=== PATIENT | female | born 1985 | race Hispanic/Latino ===

== ENCOUNTER 2017-07-31 13:17 | Outpatient (CLI) | payer OTHER ==
[2017-07-31] MEDS ORDERED: NACL ONE (14:04)
--- NOTE | 2017-07-31 15:25 | Cat Scan Report ---
CT angiography of the chest including 3-D reconstructed images. History: Chest pain. There is no evidence of pulmonary embolus. There is mild technical compromised due to body habitus. The lungs are clear. No pleural fluid is seen. Impression: No evidence of pulmonary emboli.
== END 2017-07-31 13:18 | disposition home or self-care (01) ==
LOC: CT 13:17
PROVIDERS: ATTEND Internal Medicine
DX: R07.89 Other chest pain (principal); R06.02 Shortness of breath
CPT/HCPCS: 71275; Q9967

== ENCOUNTER 2021-01-12 12:47 | Outpatient (CLI) | payer MEDICAID ==
[2021-01-12 13:19] LABS: Basophils # (Auto) 0.1 K/mm3 (0.0-0.1); Basophils % (Auto) 0.5 % (0.0-1.8); Eosinophils # (Auto) 0.2 K/mm3 (0.0-0.4); Eosinophils % (Auto) 1.4 % (0.0-4.3); Hematocrit 37.4 % (30.3-42.9); Hemoglobin 12.6 gm/dl (10.1-14.3); Lymphocytes # (Auto) 3.3 K/mm3 (1.2-5.4); Lymphocytes % (Auto) 21.4 % (13.4-35.0); Mean Corpuscular HGB Conc 34 % (30-34); Mean Corpuscular Volume 80 fl (79-97); Monocytes % (Auto) 6.7 % (0.0-7.3); Platelet Count 570 K/mm3 (140-440); Red Blood Count 4.68 M/mm3 (3.65-5.03); Red Cell Distribution Width 14.2 % (13.2-15.2)
[2021-01-12 13:40] LABS: % Iron Saturation 9.86 %; Alanine Aminotransferase 11 units/L (7-56); Albumin 3.8 g/dL (3.9-5); BUN/Creatinine Ratio 14; Blood Urea Nitrogen 13 mg/dL (7-17); Calcium 9.1 mg/dL (8.4-10.2); Chol/HDL Ratio 4.44 %; HDL Cholesterol 36 mg/dL (40-59); Hemolysis Index 1; Iron 29 ug/dL (37-170); LDL Cholesterol,Direct 107 mg/dL (50-130); Total Iron Binding Capacity 294 mcg/dL (250-450)
[2021-01-16 10:48] LABS: Vitamin D, 25-OH, D2 <4 ng/mL
== END 2021-01-12 12:48 | disposition home or self-care (01) ==
LOC: LAB 12:47
PROVIDERS: ATTEND Surgery
DX: E11.9 Type 2 diabetes mellitus without complications (principal); E55.9 Vitamin D deficiency, unspecified; E66.01 Morbid (severe) obesity due to excess calories; K30 Functional dyspepsia; K90.9 Intestinal malabsorption, unspecified
CPT/HCPCS: 36415; 80053; 80061; 82306; 82607; 82728; 83036; 83550; 84443; 85025; 85730

== ENCOUNTER 2021-01-28 10:00 | Outpatient (CLI) | payer MEDICAID ==
--- NOTE | 2021-01-28 11:29 | Fluoroscopy Report ---
UPPER GI HISTORY: GASTRO-ESOPHAGEAL REFLUX DISEASE W/O ESOPHAGITIS. TECHNIQUE: Single and double contrast barium technique utilized to evaluate the esophagus, stomach, and duodenal C-loop. FINDINGS: To begin the exam, swallowing was evaluated in the lateral position under direct fluorosco py. Swallowing was normal. No mucosal irregularity, mass, mass effect, or critical stenosis. There were no abnormal tertiary c ontractions as seen with dysmotility. No gastroesophageal reflux. IMPRESSION: Unremarkable exam. Fluoroscopic time: 2.0 minutes Number of fluoroscopic images: 21 Signer Name: Mark Marie Jr, MD Signed: 01/28/2021 11:25 AM Workstation Name: [id number]
== END 2021-01-28 10:01 | disposition home or self-care (01) ==
LOC: FLUORO 10:00
PROVIDERS: ATTEND Surgery
DX: K21.9 Gastro-esophageal reflux disease without esophagitis (principal)
CPT/HCPCS: 74246

== ENCOUNTER 2021-02-15 07:01 | Day surgery (SDC) | payer MEDICAID ==
[~2021-02-15 07:01] MED LIST: SODIUM CHLORIDE 0.9% 1000 ML 1,000 ML IV SCH
--- NOTE | 2021-02-15 08:13 | Anesthesia Consultation ---
Anesthesia Consult and Med Hx Date of service: 02/15/21 - Airway Anesthetic Teeth Evaluation: Dentures (Upper full plate dentures) ROM Head & Neck: Adequate Mental/Hyoid Distance: Adequate Mallampati Class: Class III Intubation Access Assessment: Possibly Difficult - Pulmonary Exam CTA: Yes - Pre-Operative Health Status ASA Pre-Surgery Classification: ASA3 Proposed Anesthetic Plan: MAC - Pulmonary Hx Smoking: No Hx Asthma: No Hx Respiratory Symptoms: No Hx Sleep Apnea: Yes - Cardiovascular System Hx Hypertension: Yes Hx Heart Attack/AMI: No Hx Angina: No Hx Pacemaker: No - Central Nervous System Hx Neuromuscular Disorder: No Hx Seizures: No CVA: No Hx Psychiatric Problems: Yes (Anxiety/Depression) - Gastrointestinal Hx Gastroesophageal Reflux Disease: Yes - Endocrine Hx Renal Disease: No Hx Liver Disease: No Hx Insulin Dependent Diabetes: No Hx Non-Insulin Dependent Diabetes: No Hx Thyroid Disease: No - Other Systems Hx Alcohol Use: No Hx Substance Use: No Hx Obesity: Yes (BMI 39.7kg) - Additional Comments Anesthesia Medical History Comments: Hx. PONV
--- NOTE | 2021-02-15 08:17 | Anesthesia Day of Surgery ---
Anesthesia Day of Surgery - Day of Surgery Patient Examined: Yes Patient H&P Reviewed: Yes Patient is NPO: Yes Beta Blockers: No Cardiac Clearance: No Pulmonary Clearance: No Jacinto's Test: N/A
--- NOTE | 2021-02-15 08:40 | Discharge Summary ---
Providers - Providers Date of Admission: 02/15/2021 Date of discharge: 02/15/21 Attending physician: CLAIRE RAMSAY MD Primary care physician: MYRANDA WOODARD Hospitalization Reason for admission: EGD Condition: Good Procedures: EGD with biopsy Hospital course: Pt presented for a pre-op EGD as part of planning for up coming bariatric surgery. Procedure was uneventful and pt recovered well and was discharged to home. Disposition: DC-01 TO HOME OR SELFCARE Final Discharge Diagnosis (Prints w/discharge instructions): GERD, morbid obesity Core Measure Documentation - Palliative Care Palliative Care/ Comfort Measures: Not Applicable - Core Measures Any of the following diagnoses?: none Exam - Physical Exam Narrative exam: unchanged from pre-op Plan Activity: advance as tolerated Diet: low carbohydrate Follow up with: MYRANDA WOODARD MD [Primary Care Provider] - 7 Days
--- NOTE | 2021-02-15 08:41 | Operative Report ---
Operative Report Operative Report: DATE: 02/15/2021 SURGERY: Upper endoscopy. SURGEON: Vinh Jade M.D. PROCEDURE: EGD with biopsy PRE OP DX: morbid obesity, GERD, peptic ulcer disease POST OP DX: morbid obesity, GERD, PUD TYPE OF ANESTHESIA: MAC. ESTIMATED BLOOD LOSS: None. COMPLICATIONS: None. SPECIMENS REMOVED: antral biopsy FINDINGS: 1. Small hiatal hernia. 2. Otherwise, normal esophagus, stomach and first portion of duodenum. INDICATIONS:INDICATION FOR PROCEDURE: Patient is a 35-year-old female with a long history of morbid obesity. She is planned to have a weight loss procedure and is here for preoperative planning EGD. PROCEDURE DETAILS: After consent was reviewed, patient was taken back to the operating room where patient was placed in the left lateral decubitus position and a bite block was placed in the mouth. After a time-out was called, MAC anesthesia was initiated. I then passed the endoscope into her oropharynx, into her esophagus, visualized the entire esophagus, which was all within normal limits. Z-line was noted to about 36 cm from incisors. I then visualized the stomach and the first portion of the duodenum and there were no abnormalities I could clearly visualize except for antral gastritis. A cold forceps biopsy of the antrum was taken and will be sent to pathology to evaluate for H.pylori. I then retroflexed the scope in the stomach and visualized the hiatus and I could see a small hiatal hernia. I then desufflated the stomach and removed the endoscope. Patient tolerated procedure well and was transferred to recovery room in good and stable condition.
[2021-02-15] MEDS ORDERED: propofoL 200 MG/20 ML VIAL IV ONE ×2 (09:31)
[2021-02-15 10:23] VITALS: BP 125/76
--- NOTE | 2021-02-15 19:32 | Post Anesthesia Evaluation ---
- Post Anesthesia Evaluation Patient Participated: Yes Airway Patent: Yes Stable Respiratory Function: Yes Nausea/Vomiting: No Temp > 96.8F: Yes Pain Manageable: Yes Adequeate Hydration: Yes Anesthesia Complications: No Block Receding Appropriately: Not Applicable Patient on Ventilator: No
== END 2021-02-15 10:10 | disposition home or self-care (01) ==
LOC: GIO 07:01
PROVIDERS: ATTEND Surgery
DX: K21.9 Gastro-esophageal reflux disease without esophagitis (principal); E66.01 Morbid (severe) obesity due to excess calories; K27.9 Peptic ulcer, site unspecified, unspecified as acute or chronic, without hemorrhage or perforation; K44.9 Diaphragmatic hernia without obstruction or gangrene; I10 Essential (primary) hypertension; G47.30 Sleep apnea, unspecified; F41.9 Anxiety disorder, unspecified; F32.9 Major depressive disorder, single episode, unspecified; Z88.0 Allergy status to penicillin; Z88.8 Allergy status to other drugs, medicaments and biological substances; Z79.899 Other long term (current) drug therapy; Z68.39 Body mass index [BMI] 39.0-39.9, adult
CPT/HCPCS: 43239; 88305; 88342; J2704; J7030

== ENCOUNTER 2021-03-28 05:55 | Inpatient (IN) | payer MEDICAID ==
[2021-03-22 11:38] LABS: Hematocrit 36.6 % (30.3-42.9); Hemoglobin 12.7 gm/dl (10.1-14.3); Mean Corpuscular HGB Conc 35 % (30-34); Mean Corpuscular Volume 77 fl (79-97); Platelet Count 407 K/mm3 (140-440); Red Blood Count 4.73 M/mm3 (3.65-5.03); Red Cell Distribution Width 16.1 % (13.2-15.2)
[2021-03-22 11:48] LABS: Alanine Aminotransferase 16 units/L (7-56); BUN/Creatinine Ratio 14; Blood Urea Nitrogen 11 mg/dL (7-17); Calcium 8.9 mg/dL (8.4-10.2); Hemolysis Index 1
--- NOTE | 2021-03-22 14:54 | Anesthesia Consultation ---
Anesthesia Consult and Med Hx Date of service: 03/28/21 - Airway Anesthetic Teeth Evaluation: Good, Dentures (upper) ROM Head & Neck: Adequate Mental/Hyoid Distance: Adequate Mallampati Class: Class III Intubation Access Assessment: Possibly Difficult - Pulmonary Exam CTA: Yes - Cardiac Exam Cardiac Exam: RRR - Pre-Operative Health Status ASA Pre-Surgery Classification: ASA3 Proposed Anesthetic Plan: General - Pulmonary Hx Smoking: No Hx Respiratory Symptoms: No (normal volumes/spirometry on PFTs) Hx Sleep Apnea: Yes (mild per sleep study, not yet started CPAP) - Cardiovascular System Hx Hypertension: Yes Hx Heart Attack/AMI: No Hx Percutaneous Transluminal Coronary Angioplasty (PTCA): No Hx Cardia Arrhythmia: No - Central Nervous System CVA: No - Gastrointestinal Hx Gastroesophageal Reflux Disease: Yes - Endocrine Hx Renal Disease: No Hx Liver Disease: No Hx Insulin Dependent Diabetes: No Hx Non-Insulin Dependent Diabetes: No (A1c 5.4) Hx Thyroid Disease: No - Other Systems Hx Obesity: Yes (BMI 40) - Additional Comments Anesthesia Medical History Comments: Hx PONV which was greatly improved with scopolamine TD. Pulmonary and medical eval on chart.
[2021-03-28] MEDS ORDERED: SCOPOLAMINE TRANSDERMAL PATCH 72 HR TD NR (06:00)
[2021-03-28] MEDS ORDERED: LACTATED RINGERS 1,000 ML IV SCH ×2 (06:00→13:00)
[2021-03-28] MEDS ORDERED: MIDAZOLAM 2 MG/2 ML INJ IV NR (06:00)
[2021-03-28] MEDS ORDERED: GABAPENTIN 500 MG/10 ML ORAL LIQD ONE (06:55)
[2021-03-28] MEDS ORDERED: ENOXAPARIN 40 MG/0.4 ML INJ SUB-Q ONE (06:56)
[2021-03-28] MEDS ORDERED: metroNIDAZOLE/NS 500 MG/100 ML 500 MG/100 ML BAG IV ONE (06:56)
[2021-03-28] MEDS ORDERED: ACETAMINOPHEN IV 1,000 MG/100 ML BOTTLE IV ONE (06:57)
[2021-03-28] MEDS ORDERED: metroNIDAZOLE/NS 500 MG/100 ML 500 MG/100 ML BAG IV NR (07:20)
[2021-03-28] MEDS ORDERED: ACETAMINOPHEN IV 1,000 MG/100 ML BOTTLE IV NR ×2 (07:20→15:00)
--- NOTE | 2021-03-28 07:21 | Anesthesia Day of Surgery ---
Anesthesia Day of Surgery - Day of Surgery Patient Examined: Yes Patient H&P Reviewed: Yes Patient is NPO: Yes
[2021-03-28] MEDS ORDERED: HYDROmorphone 1 MG/1 ML INJ IV PRN ×2 (07:22→11:03)
[2021-03-28] MEDS ORDERED: ONDANSETRON 4 MG/2 ML INJ IV PRN ×2 (07:22→11:03)
[2021-03-28] MEDS ORDERED: BUPIVACAINE/PF (0.25%) 2.5 MG/ML 30 ML VIAL INFILTRATI ONE ×2 (07:35→08:47)
[2021-03-28] MEDS ORDERED: LIDOCAINE (1%) 10 MG/1 ML VIAL 20 ML MDV ONE (07:36)
[2021-03-28] MEDS ORDERED: KETOROLAC 30 MG/1 ML INJ IV SCH (08:00)
[2021-03-28] MEDS ORDERED: LIDOCAINE 1%/EPINEPHRINE 1:100,000 VIAL (20 ML) INFILTRATI ONE ×2 (08:05→08:47)
[2021-03-28] MEDS ORDERED: SODIUM CHLORIDE 0.9% IRRIG SOLN 2000 ML IR ONE (08:47)
[2021-03-28] MEDS ORDERED: SODIUM CHLORIDE 0.9% IRR 1,500 ML BOTTLE IR ONE (08:48)
[2021-03-28] MEDS ORDERED: SUGAMMADEX SODIUM 200 MG/2 ML VIAL IV ONE (09:34)
[2021-03-28] MEDS ORDERED: MAGNESIUM SULFATE 2 GM/50 ML BAG IV ONE (11:02)
[2021-03-28] MEDS ORDERED: SIMETHICONE 80 MG CHEW TAB PO PRN (11:03)
[2021-03-28] MEDS ORDERED: HYDROcodone/Acetaminophen 7.5-325MG-15ML ORAL LIQD PO PRN (11:03)
[2021-03-28] MEDS ORDERED: METOCLOPRAMIDE 10 MG/2 ML INJ IV PRN (11:03)
[2021-03-28] MEDS ORDERED: hydrALAZINE 20 MG/1 ML INJ IV PRN (11:03)
[2021-03-28] MEDS ORDERED: ONDANSETRON 4 MG/2 ML INJ ONE (11:07)
[2021-03-28] MEDS ORDERED: ROCURONIUM 50 MG/5 ML INJ IV ONE (11:07)
[2021-03-28] MEDS ORDERED: KETAMINE/STERILE WATER 50 MG/ML SYRINGE ONE (11:07)
[2021-03-28] MEDS ORDERED: dexAMETHasone 20 MG/5 ML VIAL ONE (11:07)
--- NOTE | 2021-03-28 11:18 | Operative Report ---
Operative Report Operative Report: DATE OF PROCEDURE: 03/28/2021 SURGEON: Vinh Jade M.D. BOX SEALING MACHINE FEEDER: Mian Stafford CSA MD PREOPERATIVE DIAGNOSIS: Morbid obesity, hiatal hernia POSTOPERATIVE DIAGNOSES: Same as preop PROCEDURES PERFORMED: 1. Laparoscopic gastric bypass. 2. Laparoscopic hiatal hernia repair 2. EGD. ANESTHESIA: General endotracheal tube intubation. SPECIMENS: None. ESTIMATED BLOOD LOSS: Less than 20 mL. FINDINGS: Normal anatomy. COMPLICATIONS: None. INDICATION: Ms. Mayen is a 35-year-old female with history of morbid obesity and hiatal hernia who is here for bariatric surgery for weight loss. She signed informed consent and expressed understanding of risks and benefits. DESCRIPTION OF PROCEDURE: Patient was brought to the OR suite, laid in supine position. Bilateral lower extremity SCDs were placed. General anesthesia was induced via successful endotracheal tube intubation. Patient's abdomen was prepped and draped in sterile fashion. A veress needle was used to insuflate the abdomen to a pressure of 15mmHg in the left subcostal region. Using Optiview technique, a 5- mm trocar was placed into the abdominal cavity under direct vision just superior and to the left of the umbilicus. There was noted to be no gross injury to any intraabdominal structures. 12 mm in the right mid abdomen mid clavicular line and three 5-mm trocars in the right upper quadrant, epigastric areas were placed under direct visualization. At this time, the ligament of Treitz identified and followed down approximately 50 cm and the jejunum was transected. The distal segment of jejunum was then traced for approximately 100 cm and a stable [id number]-arxu jejunojejunostomy was performed. The common enterotomy was closed with 2 firings of the endoscopic stapler. The mesenteric defect was closed with running V-Loc suture. This anastomosis was found to be patent without kink, obstruction or bleeding. At this time, the patient was placed in steep reverse Trendelenburg position. A liver retractor was placed through the epigastric port to elevate the left lateral lobe of the liver. There was noted to be a hiatal hernia present with approximately a centimeter proximal stomach above the level diaphragm. The hernia sac was dissected away from the crura until the stomach was resting comfortably below the level of the diaphragm with 2 cm of intra-abdominal esophagus without tension. A crura plasty was performed using a horizontal mattress suture using Surgidac stitch. The anterior gastric fat pad was excised. A small gastric pouch was formed starting in about 4 cm distal to the GE junction, after a retrogastric tunnel was created. The pouch was created using blue staple loads. The Osbaldo limb was then brought in an antegastric antecolic fashion and secured with 2 stay sutures to the gastric pouch. After this, the enterotomies were made with Harmonic scalpel, and a [id number]-tosh stapled gastrojejunostomy was performed with a mechanical stapler. After this, a 2-layer running closure using absorbable V-lock suture were done, the first being mucosal approximation prior to completion of the first layer. Then I passed and an EGD scope beyond the anastomosis to act as a stent. The first layer was completed, the second was then performed. After this, the EGD was retracted slightly. A bowel clamp was placed in a proximal Osbaldo limb. The anastomosis was submerged under saline. Via intraluminal EGD insufflation, there was noted be no bubbles in the saline indicating an airtight anastomosis. There was noted to be no obstruction or bleeding intraluminally in the pouch or the anastomosis. At this time, the scope was removed. The saline was aspirated. Tiseel was placed over the anastomosis. All trocars were removed under direct visualization and the abdomen was then desufflated. The 12mm trocar site was closed using POD and a Kenney boucher for fear that after surgery it become incarcerated. The skin incisions were closed with 4-0 Monocryl followed by Dermabond dressings. Patient was awoken and taken to recovery in stable condition. All counts were correct.
[2021-03-28] MEDS ORDERED: MIDAZOLAM 2 MG/2 ML INJ ONE (11:40)
[2021-03-28] MEDS ORDERED: PANTOPRAZOLE 40 MG INJ IV SCH (12:00)
[2021-03-28] MEDS ORDERED: ePHEDrine SULFATE 50 MG/1 ML INJ ONE (12:47)
[2021-03-28] MEDS: HYDROmorphone 1 MG/1 ML INJ IV PRN ×3 (12:50→17:15)
[2021-03-28] MEDS ORDERED: GABAPENTIN 500 MG/10 ML ORAL LIQD PO NR (15:00)
[2021-03-28] MEDS: metroNIDAZOLE/NS 500 MG/100 ML 500 MG/100 ML BAG IV SCH (17:13)
[2021-03-28] MEDS: ACETAMINOPHEN IV 1,000 MG/100 ML BOTTLE IV SCH (21:06)
[2021-03-28] MEDS: MORPHINE 2 MG/1 ML INJ IV PRN (21:16)
[2021-03-29] MEDS: metroNIDAZOLE/NS 500 MG/100 ML 500 MG/100 ML BAG IV SCH ×2 (01:21→03:28)
[2021-03-29] MEDS: ACETAMINOPHEN IV 1,000 MG/100 ML BOTTLE IV SCH ×2 (03:33→03:34)
[2021-03-29] MEDS: MORPHINE 2 MG/1 ML INJ IV PRN (03:37)
[2021-03-29 05:33] LABS: Basophils % (Auto) 0.2 % (0.0-1.8); Hematocrit 32.6 % (30.3-42.9); Hemoglobin 10.7 gm/dl (10.1-14.3); Lymphocytes # (Auto) 1.6 K/mm3 (1.2-5.4); Lymphocytes % (Auto) 10.4 % (13.4-35.0); Mean Corpuscular HGB Conc 33 % (30-34); Mean Corpuscular Volume 80 fl (79-97); Monocytes # (Auto) 0.7 K/mm3 (0.0-0.8); Monocytes % (Auto) 4.6 % (0.0-7.3); Platelet Count 362 K/mm3 (140-440); Red Blood Count 4.09 M/mm3 (3.65-5.03); Red Cell Distribution Width 16.6 % (13.2-15.2)
[2021-03-29] MEDS: KETOROLAC 30 MG/1 ML INJ IV SCH ×4 (05:42→12:56)
[2021-03-29 05:51] LABS: Alanine Aminotransferase 25 units/L (7-56); Albumin 3.4 g/dL (3.9-5); Blood Urea Nitrogen 6 mg/dL (7-17); Calcium 8.6 mg/dL (8.4-10.2); Hemolysis Index 21
[2021-03-29 05:58] LABS: BUN/Creatinine Ratio 10
[2021-03-29] MEDS ORDERED: ENOXAPARIN 40 MG/0.4 ML INJ SUB-Q SCH (10:00)
[2021-03-29 11:33] VITALS: BP 139/75
--- NOTE | 2021-03-29 15:05 | Discharge Summary ---
Providers - Providers Date of Admission: 03/28/21 05:55 Date of discharge: 03/29/21 Attending physician: CLAIRE RAMSAY MD 03/28/21 11:03 Physical Therapy Evaluation and Treat [CONS] Routine Comment: Reason For Exam: post op bariatric surgery Primary care physician: MYRANDA WOODARD Hospitalization Reason for admission: s/p lap gastric bypass with hiatal hernia repair Condition: Good Procedures: laparoscopic gastric bypass with hiatal hernia repair Hospital course: pt had an uneventful laparoscopic gastric bypass with hiatal hernia repair. She had an uneventful post op course remaining afebrile with normal vital signs. She was toleratiing clear liquids with good pain control, and ambulating well. She showed no clinical signs of leak or bleeding at the time of discharge. Disposition: DC- TO HOME OR SELFCARE Final Discharge Diagnosis (Prints w/discharge instructions): morbid obesity, hiatal hernia Core Measure Documentation - Palliative Care Palliative Care/ Comfort Measures: Not Applicable - Core Measures Any of the following diagnoses?: none Exam - Constitutional Vitals: Temp Pulse Resp BP Pulse Ox 98.6 F 74 22 139/75 99 03/29/21 11:09 03/29/21 11:09 03/29/21 11:09 03/29/21 11:09 03/29/21 11:09 General appearance: Present: no acute distress, obese - Respiratory Respiratory effort: normal - Cardiovascular Heart Sounds: Present: S1 & S2 - Extremities Extremities: no ischemia - Abdominal General gastrointestinal: Present: soft, other (appropriately tender to palpation, all incisions c/d/i) - Musculoskeletal Musculoskeletal: strength equal bilaterally - Psychiatric Psychiatric: appropriate mood/affect - Neurologic Neurologic: CNII-XII intact Plan Activity: advance as tolerated Diet: clear liquids Wound: open to air, keep clean and dry Follow up with: MYRANDA WOODARD MD [Primary Care Provider] - 7 Days
== END 2021-03-29 17:39 | disposition home or self-care (01) | DRG 621 ==
LOC: 3A 05:55 → 3B-SURG 19:16
PROVIDERS: ADMIT Surgery; ATTEND Surgery
PROC: 0D164ZA Bypass Stomach to Jejunum, Percutaneous Endoscopic Approach (ICD-10-PCS; principal; 2021-03-28)
PROC: 0BQT4ZZ Repair Diaphragm, Percutaneous Endoscopic Approach (ICD-10-PCS; 2021-03-28)
PROC: 0DJ08ZZ Inspection of Upper Intestinal Tract, Via Natural or Artificial Opening Endoscopic (ICD-10-PCS; 2021-03-28)
DX: E66.01 Morbid (severe) obesity due to excess calories (principal); K44.9 Diaphragmatic hernia without obstruction or gangrene; I10 Essential (primary) hypertension; G47.30 Sleep apnea, unspecified; Z68.41 Body mass index [BMI] 40.0-44.9, adult; Z20.822 Contact with and (suspected) exposure to COVID-19
CPT/HCPCS: 36415; 80053; 85025; 85027; G0378; C9113; C9250; J0131; J1100; J1170; J1650; J1885; J2250; J2270; J2405; J2704; J3475; J3490; J7120; U0003

== ENCOUNTER 2021-04-25 11:46 | Outpatient (CLI) | payer MEDICAID ==
[2021-04-25 12:38] LABS: % Iron Saturation 7.78 %; Alanine Aminotransferase 15 units/L (7-56); Albumin 3.9 g/dL (3.9-5); Blood Urea Nitrogen 8 mg/dL (7-17); Calcium 9.3 mg/dL (8.4-10.2); Chol/HDL Ratio 3.02 %; HDL Cholesterol 38 mg/dL (40-59); Hemolysis Index 2; Iron 27 ug/dL (37-170); LDL Cholesterol,Direct 67 mg/dL (50-130); Total Iron Binding Capacity 347 mcg/dL (250-450)
[2021-04-25 12:39] LABS: BUN/Creatinine Ratio 13
[2021-04-25 12:59] LABS: Basophils # (Auto) 0.1 K/mm3 (0.0-0.1); Basophils % (Auto) 0.6 % (0.0-1.8); Eosinophils # (Auto) 0.2 K/mm3 (0.0-0.4); Eosinophils % (Auto) 1.9 % (0.0-4.3); Hematocrit 36.9 % (30.3-42.9); Lymphocytes # (Auto) 2.9 K/mm3 (1.2-5.4); Lymphocytes % (Auto) 31.7 % (13.4-35.0); Mean Corpuscular HGB Conc 33 % (30-34); Mean Corpuscular Volume 79 fl (79-97); Monocytes # (Auto) 0.8 K/mm3 (0.0-0.8); Monocytes % (Auto) 8.5 % (0.0-7.3); Platelet Count 329 K/mm3 (140-440); Red Blood Count 4.67 M/mm3 (3.65-5.03)
== END 2021-04-25 11:47 | disposition home or self-care (01) ==
LOC: LAB 11:46
PROVIDERS: ATTEND Surgery
DX: E55.9 Vitamin D deficiency, unspecified (principal); E66.01 Morbid (severe) obesity due to excess calories; K90.9 Intestinal malabsorption, unspecified; K30 Functional dyspepsia; Z98.84 Bariatric surgery status
CPT/HCPCS: 36415; 80053; 80061; 82607; 82728; 83550; 83970; 84425; 84443; 85025